=== PATIENT | male | born 1965 | race Caucasian/White ===

== ENCOUNTER → 2017-01-12 | Day surgery (SDC) | payer OTHER ==
[2017-01-12 07:30] LABS: HCT 45.9 % (42.0-52.0); HGB 15.9 g/dl (13.2-18.0); MCH 30.9 pg (25.0-31.0); MCHC 34.6 g/dL (32.0-36.0); MCV 89.3 fL (78.0-100.0); MPV 10.8 fL (6.0-9.5); RBC 5.14 M/uL (4.70-6.00); RDW 13.7 % (11.5-14.0); WBC 11.1 K/uL (4.0-10.5)
[2017-01-12 07:49] LABS: ALBUMIN 4.5 g/dL (3.5-5.0); BILIRUBIN - TOTAL 0.6 mg/dL (0.1-1.0); CREATININE 1.3 mg/dL (0.7-1.2); GLOBULIN (CALCULATION) 2.6 g/dL (2.2-4.2); POTASSIUM 4.4 mmol/L (3.5-5.1); TOTAL PROTEIN 7.1 g/dL (6.4-8.3)
== END | disposition home or self-care (01) ==
LOC: FAS 06:49 → EDSTATUS 08:00
PROVIDERS: Surgery
DX: Z12.11 Encounter for screening for malignant neoplasm of colon (principal); K21.9 Gastro-esophageal reflux disease without esophagitis; I10 Essential (primary) hypertension; E78.00 Pure hypercholesterolemia, unspecified; M19.90 Unspecified osteoarthritis, unspecified site; Z90.49 Acquired absence of other specified parts of digestive tract; Z87.891 Personal history of nicotine dependence; Z82.49 Family history of ischemic heart disease and other diseases of the circulatory system; Z82.61 Family history of arthritis; Z80.8 Family history of malignant neoplasm of other organs or systems; Z83.6 Family history of other diseases of the respiratory system; Z83.42 Family history of familial hypercholesterolemia; Z84.89 Family history of other specified conditions; Z80.0 Family history of malignant neoplasm of digestive organs; Z79.899 Other long term (current) drug therapy; Z98.890 Other specified postprocedural states
CPT/HCPCS: 36415; 80053; J2704